=== PATIENT | female | born 1990 | race Hispanic/Latino ===

== ENCOUNTER 2018-03-03 22:23 | Emergency (ER) | payer SELFPAY | END 2018-03-03 22:57 | disposition home or self-care (01) | LOC: ERS 22:23 | DX: O9A.219 Injury, poisoning and certain other consequences of external causes complicating pregnancy, unspecified trimester (principal); T63.481A Toxic effect of venom of other arthropod, accidental (unintentional), initial encounter | CPT/HCPCS: 99282 ==

== ENCOUNTER 2018-10-13 00:15 | Inpatient (IN) | payer OTHER, SELFPAY ==
[2018-10-13] MEDS: Lactated Ringer's 1,000 ML IV SCH ×4 (02:13→14:06)
[2018-10-13] MEDS ORDERED: Lidocaine 1% (PF) 30 ML VIAL SC PRN (02:25)
[2018-10-13] MEDS ORDERED: Misoprostol 200 MCG TAB PR PRN (02:25)
[2018-10-13] MEDS ORDERED: HYDROcodone/Acetaminophen 5/325 mg Tablet PO PRN ×3 (02:25→16:51)
[2018-10-13] MEDS ORDERED: Promethazine HCl 25 MG/ML VIAL IM PRN ×3 (02:25→16:51)
[2018-10-13] MEDS ORDERED: Ondansetron PF 4 MG/2 ML Vial IVP PRN ×3 (02:25→16:51)
[2018-10-13] MEDS ORDERED: NS / Oxytocin 40 units/1000ml 1,000 ML IV PRN (02:25)
[2018-10-13] MEDS ORDERED: Diphenoxylate HCl/Atropine Tablet PO PRN (02:25)
[2018-10-13] MEDS ORDERED: Ibuprofen 800 MG TAB PO PRN (02:25)
[2018-10-13] MEDS ORDERED: Carboprost 250 MCG/ML AMP IM PRN (02:25)
[2018-10-13] MEDS ORDERED: Methylergonovine 0.2 MG/ML VIAL IM PRN (02:25)
[2018-10-13] MEDS ORDERED: Butorphanol Tartrate 1 MG/ML VIAL SLOW IVP PRN (02:25)
[2018-10-13 02:35] VITALS: BMI 24.9
[2018-10-13] MEDS: Misoprostol 100 MCG TAB PO SCH ×2 (02:40→07:45)
[2018-10-13] MEDS ORDERED: NS w/ Oxytocin 10 units 500 ML IV SCH ×2 (02:45)
[2018-10-13 02:46] LABS: Hemoglobin 9.1 g/dL (12.0-16.0); Mean Corpuscular HGB CONC 34.9 g/dL (32.0-36.0); Mean Corpuscular Volume 88.8 fL (78.0-98.0); Mean Platelet Volume 9.4 fL (7.4-10.4); Platelet Count 168 thou/uL (130-400); RBC Distribution Width 11.9 % (11.5-14.5); Red Blood Cell (RBC) Count 2.95 mill/uL (4.20-5.40); White Blood Cell (WBC) Count 6.9 thou/uL (4.8-10.8)
[2018-10-13 03:55] LABS: HBSAg Index 0.28 S/CO (0-0.99); Hep B Surf Ag Non-Reactive S/CO (NonReactive)
[2018-10-13 04:38] LABS: Syphilis Antibody Nonreactive (Nonreactive); Syphilis Antibody Index 0.02 S/CO (<1.00 Non-Reactive)
[2018-10-13] MEDS ORDERED: Fentanyl 4 mcg/Bup 0.1% Cadd 100 ML ONE (07:34)
[2018-10-13] MEDS ORDERED: Naloxone HCl 0.4 mg/ml Vial IVP PRN ×2 (15:38)
[2018-10-13] MEDS ORDERED: Acetaminophen 325 MG TAB PO PRN (15:38)
[2018-10-13] MEDS ORDERED: Lactated Ringer's 500 ML IV PRN (15:38)
[2018-10-13] MEDS ORDERED: ePHEDrine/0.9% NaCl/PF SYRINGE 50 mg/10 ml SLOW IVP PRN (15:38)
[2018-10-13] MEDS ORDERED: diphenhydrAMINE 50 MG/ML VIAL IVP PRN (15:38)
[2018-10-13] MEDS ORDERED: Communication Order-Pharmacy FS SCH (15:45)
[2018-10-13] MEDS ORDERED: Fentanyl 4 mcg/Bupivacaine 0.1% Cassette 100 ML EPIDURAL SCH (15:45)
[2018-10-13] MEDS ORDERED: Bisacodyl 10 MG SUPP PR PRN (16:51)
[2018-10-13] MEDS ORDERED: diphenhydrAMINE 25 MG CAP PO PRN (16:51)
[2018-10-13] MEDS ORDERED: Benzocaine-Menthol 82.5 ML CAN TOP PRN (16:51)
[2018-10-13] MEDS ORDERED: NS / Oxytocin 40 units/1000ml 1,000 ML IV SCH (16:51)
[2018-10-13] MEDS ORDERED: Milk Of Magnesia 30 ML UDCUP PO PRN (16:51)
[2018-10-13] MEDS ORDERED: Lanolin Ointment 7 GM TUBE TOP PRN (16:51)
[2018-10-13] MEDS: Ferrous Sulfate 325 MG TAB PO SCH (17:40)
[2018-10-13] MEDS: Ibuprofen 800 MG TAB PO SCH (17:40)
[2018-10-13] MEDS: Docusate Calcium (SURFAK) 240 MG CAP PO SCH (21:07)
[2018-10-14] MEDS: Ibuprofen 800 MG TAB PO SCH ×2 (05:30→14:22)
[2018-10-14 06:30] LABS: Hemoglobin 8.7 g/dL (12.0-16.0); Mean Corpuscular HGB CONC 33.9 g/dL (32.0-36.0); Mean Corpuscular Hemoglobin 30.2 pg (27.0-31.0); Mean Platelet Volume 9.1 fL (7.4-10.4); Platelet Count 149 thou/uL (130-400); Red Blood Cell (RBC) Count 2.87 mill/uL (4.20-5.40); White Blood Cell (WBC) Count 10.9 thou/uL (4.8-10.8)
[2018-10-14] MEDS ORDERED: Prenatal Vitamin 1 TAB PO SCH (09:00)
[2018-10-14] MEDS: Ferrous Sulfate 325 MG TAB PO SCH (09:50)
[2018-10-14] MEDS: Docusate Calcium (SURFAK) 240 MG CAP PO SCH (09:50)
[2018-10-14 17:28] VITALS: BP 107/73; TEMP 98.5
== END 2018-10-14 17:30 | disposition home or self-care (01) | DRG 807 ==
LOC: L&D 00:49 → 3SW 17:58
PROVIDERS: ADMIT Family Medicine; ATTEND Family Medicine
PROC: 10E0XZZ Delivery of Products of Conception, External Approach (ICD-10-PCS; principal; 2018-10-13)
PROC: 0HQ9XZZ Repair Perineum Skin, External Approach (ICD-10-PCS; 2018-10-13)
PROC: 10907ZC Drainage of Amniotic Fluid, Therapeutic from Products of Conception, Via Natural or Artificial Opening (ICD-10-PCS; 2018-10-13)
DX: O69.81X0 Labor and delivery complicated by cord around neck, without compression, not applicable or unspecified (principal); Z37.0 Single live birth; Z3A.39 39 weeks gestation of pregnancy; O70.0 First degree perineal laceration during delivery
CPT/HCPCS: 36415; 51702; 85027; 86780; 86850; 86900; 86901; 87340; J2001; J2405